=== PATIENT | male | born 1985 | race Caucasian/White ===

== ENCOUNTER 2021-10-27 09:41 | Outpatient (CLI) | payer OTHER, MEDICARE | END 2021-10-27 09:42 | disposition home or self-care (01) | LOC: RAD 09:41 | PROVIDERS: ATTEND Internal Medicine Nephrology | DX: Z01.818 Encounter for other preprocedural examination (principal); N18.6 End stage renal disease; I51.7 Cardiomegaly | CPT/HCPCS: 71046 ==